=== PATIENT | male | born 1985 | race Caucasian/White ===

== ENCOUNTER 2016-12-06 07:06 | Observation (INO) | payer OTHER ==
[~2016-12-06] VITALS: Ht 175.3 cm; Wt 74.4 kg
[~2016-12-06 07:06] MED LIST: CLIN1CAP5 PO; HYDR-3533 PO
[2016-12-06 07:12] VITALS: BP 105/74; PULSE 99; RESP 16; TEMP 98.6; O2SAT 100
[2016-12-06] MEDS ORDERED: SODIUM CHLOR 0.9% 1000 ML INJ 1,000 ML IV SCH (07:26)
--- NOTE | 2016-12-06 07:28 | PD ---
HPI . Abdominal pain Chief Complaint: Abdominal Pain Time Seen by Provider: 07:26 Travel History International Travel<30 days: No Contact w/Intl Traveler<30days: No Traveled to known affect area: No History of Present Illness HPI Patient presents with the acute onset of abdominal pain. This started at 10:30 PM. It started in the upper abdomen as a mild ache and has moved to the right lower quadrant. He describes it as a pressure sensation. He rates it as a 7/ 10. Pain is exacerbated by certain positions and has been relieved by ice and heat. He reports some associated nausea but no vomiting or diarrhea. He does not believe that he has been running a fever. He denies any urinary tract symptoms. PFSH Past Medical History Diminished Hearing: No Immunizations Current: Yes Social History Alcohol Use: Yes ([facility]) Tobacco Use: No Substance Use: No Allergies-Medications (Allergen,Severity, Reaction): Coded Allergies: No Known Allergies (Unverified , 12/06/16) Reported Meds & Prescriptions Reported Meds & Active Scripts Active Reported Hydrocodone-Acetaminophen 5-325 mg Tab 1 Tab PO Q6H PRN Review of Systems Except as stated in HPI: all other systems reviewed are Neg General / Constitutional: No: Fever, Chills Gastrointestinal: Positive: Nausea, Abdominal Pain, No: Vomiting, Diarrhea Genitourinary: No: Urgency, Frequency, Dysuria, Hematuria Physical Exam Narrative GENERAL: Pale. No acute distress. SKIN: Warm and dry. HEAD: Atraumatic. Normocephalic. EYES: Pupils equal and round. Extraocular movements intact. ENT: No nasal bleeding or discharge. Mucous membranes pink and moist. NECK: Trachea midline. Neck supple. CARDIOVASCULAR: Regular rate and rhythm. Heart sounds normal. RESPIRATORY: No accessory muscle use. Lungs are clear with full air movement throughout. GASTROINTESTINAL: Abdomen soft. Positive right lower quadrant tenderness. No right upper quadrant tenderness. Nondistended. Bowel sounds are present. MUSCULOSKELETAL: No obvious deformities. No edema. NEUROLOGICAL: Awake and alert. No obvious cranial nerve deficits. Motor grossly within normal limits. Normal speech. PSYCHIATRIC: Appropriate mood and affect; insight and judgment normal. Data Data Last Documented VS Vital Signs Date Time Temp Pulse Resp B/P Pulse Ox O2 Delivery O2 Flow Rate FiO2 12/06/16 07:12 98.6 99 16 105/74 100 Orders Basic Metabolic Panel (Bmp) (12/06/16 07:26) Complete Blood Count With Diff (12/06/16 07:26) Urinalysis - C+S If Indicated (12/06/16 07:26) Ct Abd/Pel W Iv Contrast(Rout) (12/06/16 07:26) Iv Access Insert/Monitor (12/06/16 07:26) Morphine Inj (Morphine Inj) (12/06/16 07:30) Ondansetron Inj (Zofran Inj) (12/06/16 07:30) Sodium Chlor 0.9% 1000 Ml Inj (Ns 1000 M (12/06/16 07:26) Sodium Chloride 0.9% Flush (Ns Flush) (12/06/16 07:30) Iohexol 350 Inj (Omnipaque 350 Inj) (12/06/16 08:13) Labs Laboratory Tests Test 12/06/16 07:41 White Blood Count 15.9 TH/MM3 Red Blood Count 5.02 MIL/MM3 Hemoglobin 14.9 GM/DL Hematocrit 43.7 % Mean Corpuscular Volume 87.0 FL Mean Corpuscular Hemoglobin 29.5 PG Mean Corpuscular Hemoglobin 34.0 % Concent Red Cell Distribution Width 12.6 % Platelet Count 225 TH/MM3 Mean Platelet Volume 8.2 FL Neutrophils (%) (Auto) 86.4 % Lymphocytes (%) (Auto) 6.9 % Monocytes (%) (Auto) 4.2 % Eosinophils (%) (Auto) 0.5 % Basophils (%) (Auto) 2.0 % Neutrophils # (Auto) 13.7 TH/MM3 Lymphocytes # (Auto) 1.1 TH/MM3 Monocytes # (Auto) 0.7 TH/MM3 Eosinophils # (Auto) 0.1 TH/MM3 Basophils # (Auto) 0.3 TH/MM3 CBC Comment DIFF FINAL Differential Comment Sodium Level 140 MEQ/L Potassium Level 4.2 MEQ/L Chloride Level 103 MEQ/L Carbon Dioxide Level 25.3 MEQ/L Anion Gap 12 MEQ/L Blood Urea Nitrogen 12 MG/DL Creatinine 1.40 MG/DL Estimat Glomerular Filtration 59 ML/MIN Rate Random Glucose 123 MG/DL Calcium Level 9.2 MG/DL MDM Medical Decision Making Medical Screen Exam Complete: Yes Emergency Medical Condition: Yes Differential Diagnosis Differential diagnosis of abdominal pain includes but is not limited to gastritis, pancreatitis, hepatitis, gastroenteritis, gallbladder disease, constipation, urinary retention, UTI, peptic ulcer disease, diverticulitis or appendicitis Narrative Course Patient presents complaining with the acute onset of abdominal pain. The pain is located in the right lower quadrant. CT to rule out appendicitis is pending. CBC & BMP Diagram 12/06/16 07:41 Last Impressions Abdomen/Pelvis CT 12/06/16 0726 Signed Impressions: Service Date/Time: Tuesday, December 06, 2016 07:55 - CONCLUSION: 1. Edematous appendix with multiple appendicoliths concerning for an early appendicitis. No significant inflammatory changes, perforation or abscess. 2. The remainder of the abdomen is otherwise unremarkable. Alex Cobos MD The patient reports that he is currently comfortable. He reports minimal pain following morphine. He is agreeable to transfer to [facility] for surgery. Physician Communication Physician Communication Discussed with Dr. Sears. The patient will be transferred to [facility] to Dr. Sears service for impending appendectomy. Diagnosis Primary Impression: Appendicitis Qualified Code: K35.3 - Acute appendicitis with localized peritonitis Admitting Information Admitting Physician Requests: Observation Condition: Stable Mecca Santana MD December 06, 2016 07:28
[2016-12-06] MEDS ORDERED: MORPHINE SULFATE 4 MG/ML INJ IV PUSH ONE (07:30)
[2016-12-06] MEDS ORDERED: SODIUM CHLORIDE 0.9% FLUSH 10 ML FLUSH IV FLUSH PRN ×2 (07:30→12:30)
[2016-12-06] MEDS ORDERED: ONDANSETRON HCL 4 MG/2 ML VIAL IVP ONE (07:30)
[2016-12-06] MEDS ORDERED: HYDR-3516 PO (07:31)
[2016-12-06 07:46] LABS: AUTOMATED NEUTROPHIL # 13.7 TH/MM3 (1.8-7.7); BASOPHIL # 0.3 TH/MM3 (0-0.2); EOSINOPHIL # 0.1 TH/MM3 (0-0.4); EOSINOPHIL % 0.5 % (0.0-4.0); HEMATOCRIT 43.7 % (39.0-51.0); HEMO FLAGS DIFF FINAL; LYMPH % 6.9 % (9.0-44.0); LYMPHOCYTE # 1.1 TH/MM3 (1.0-4.8); MEAN CORPUSCULAR HEMOGLOBIN 29.5 PG (27.0-34.0); MONO % 4.2 % (0.0-8.0); NEUT % 86.4 % (16.0-70.0); PLATELET COUNT 225 TH/MM3 (150-450); RED BLOOD COUNT 5.02 MIL/MM3 (4.50-5.90); RED CELL DISTRIBUTION WIDTH 12.6 % (11.6-17.2); WHITE BLOOD COUNT 15.9 TH/MM3 (4.0-11.0)
[2016-12-06 07:59] LABS: BICARBONATE 25.3 MEQ/L (21.0-32.0)
[2016-12-06 08:01] LABS: POTASSIUM 4.2 MEQ/L (3.5-5.1)
[2016-12-06] MEDS ORDERED: IOHEXOL 350 MG/ML 10 ML VIAL (for RAD DIAG) IV ONE (08:13)
--- NOTE | 2016-12-06 08:20 | RADHPO ---
EXAM DATE/TIME: 12/06/2016 07:55 [facility] COMPARISON: No previous studies available for comparison. INDICATIONS : RIght lower quadrant pain. IV CONTRAST: 100 cc Omnipaque 350 (iohexol) IV ORAL CONTRAST: No oral contrast ingested. RADIATION DOSE: 7.45 CTDIvol (mGy) MEDICAL HISTORY : None SURGICAL HISTORY : Inguinal hernia repair. ENCOUNTER: Initial ACUITY: 1 day PAIN SCALE: 5/10 LOCATION: Right lower quadrant TECHNIQUE: Volumetric scanning of the abdomen and pelvis was performed. Using automated exposure control and ad justment of the mA and/or kV according to patient size, radiation dose was kept as low as reasonably achievable to obtain optimal diagnostic quality images. FINDINGS: LOWER LUNGS: The visualized lower lungs are clear. LIVER: Homogeneous density without lesion. There is no dilation of the biliary tree. No calcified gallston es. SPLEEN: Normal size without lesion. PANCREAS: Within normal limits. KIDNEYS: Normal in size and shape. There is no mass, stone or hydronephrosis. ADRENAL GLANDS: Within normal limits. VASCULAR: There is no aortic aneurysm. BOWEL/MESENTERY: The stomach, small bowel, and colon demonstrate no acute abnormality. There is no free intraperitone al air or fluid. The appendix is edematous and thickened measuring up to 17 mm. There are 3 appendico liths within the proximal, mid and distal appendix. No significant inflammatory changes. No perforati on or fluid collection. ABDOMINAL WALL: Within normal limits. RETROPERITONEUM: There is no lymphadenopathy. BLADDER: No wall thickening or mass. REPRODUCTIVE: Within normal limits. INGUINAL: There is no lymphadenopathy or hernia. MUSCULOSKELETAL: Within normal limits for patient age. CONCLUSION: 1. Edematous appendix with multiple appendicoliths concerning for an early appendicitis. No significa nt inflammatory changes, perforation or abscess. 2. The remainder of the abdomen is otherwise unremarkable. Alex Cobos MD on December 06, 2016 at 8:13 Board Certified Radiologist. This report was verified electronically.
[2016-12-06] MEDS ORDERED: PIPERACIL-TAZO 3.375 GM PREMIX 50 ML IV ONE (09:45)
[2016-12-06] MEDS ORDERED: BUPIVACAINE/EPINEPHRINE 0.5% PF 30 ML VIAL ONE (10:17)
[2016-12-06 10:18] LABS: BLOOD, URINE SMALL (NEG); GLUCOSE,URINE NEG (NEG); NITRITE,URINE NEG (NEG)
[2016-12-06 10:20] LABS: KETONE, URINE 80 OR GREATER mg/dL (NEG); METHOD OF COLLECTION CLEAN CATCH; URINE COLOR YELLOW (YELLW/STRAW)
[2016-12-06 10:23] LABS: COMMENT (UR) CULT NOT INDICATED; CULTURE IF INDICATED CULT NOT INDICATED; RBC, URINE 0-3 /hpf (0-3)
[2016-12-06] MEDS ORDERED: MIDAZOLAM HCL 2 MG/2 ML VIAL ONE (10:23)
[2016-12-06 10:35] VITALS: BP 105/61; TEMP 99.4
[2016-12-06 10:38] VITALS: BP 108/61; PULSE 87; RESP 18; TEMP 99.4; O2SAT 98
[2016-12-06] MEDS ORDERED: LACTATED RINGER'S 1000 ML INJ 1,000 ML ONE (11:29)
--- NOTE | 2016-12-06 11:49 | MH ---
cc: JAVI ONEILL VARTAN MD DATE OF ADMISSION: 12/06/2016 REASON FOR ADMISSION Abdominal pain right lower quadrant. HISTORY This is a pleasant 31-year-old gentleman who is had pain in the right lower quadrant, starting in the periumbilical area starting at 10 o'clock last night, he progressed to a severe pain right lower quadrant. He came to the emergency room and workup ensued. Surgery was consulted for evaluation and surgical opinion on his source of his abdominal pain. PAST medical and surgical HISTORY Negative for any chronic medical problems. He had a inguinal hernia repair of the right side just 3 months ago with open repair. He has no cardiac or pulmonary issues. No GI issues. No allergies, routine medications. Fairly healthy gentleman. PHYSICAL EXAMINATION: IN GENERAL: On physical exam he is sitting in bed. He alert, oriented, cooperative, points to his right lower quadrant where he hurts. He looks a little uncomfortable. NECK: Supple. CHEST: Clear. HEART: Regular rate. ABDOMEN: Thin soft with exquisite tenderness right lower quadrant burning McBurney point. He has a healed scar in the right lower quadrant where he had a right inguinal hernia repair 3 months ago. NEUROLOGIC: He is alert, oriented without focal deficits concerned about his medical condition. LABORATORY DATA White count 15, H&H 14, 43. Chemistry essentially normal at the creatinine 1.4. Urinalysis fairly clear. IMAGING STUDIES CT scan shows findings consistent with appendicitis. ASSESSMENT 31-year-old gentleman who has focal findings consistent with acute appendicitis, acute abdomen confirmed with radiologic imaging. PLAN Laparoscopic appendectomy was explained to the patient in detail and he appeared to understand. OR is getting ready. We will proceed as soon as possible. MD CATHY Gan/kingsley /11:13 AM 11:46 AM DONATO
[2016-12-06] MEDS ORDERED: PROPOFOL 200 MG/20 ML AMP IV ONE (12:00)
[2016-12-06] MEDS ORDERED: KETOROLAC TROMETHAMINE 60 MG/2 ML (IM) VIAL IM ONE (12:00)
[2016-12-06 12:11] VITALS: PULSE 109
--- NOTE | 2016-12-06 12:15 | HHI.PR ---
cc: Mark Sears MD Immediate Post Op Note Procedure Date: December 06, 2016 Pre Op Diagnosis: (1) Appendicitis (2) RLQ abdominal pain (3) Abnormal CT of the abdomen (4) Elevated WBC count Post Op Diagnosis: (1) Appendicitis (2) RLQ abdominal pain (3) Elevated WBC count Surgeon: Mark Sears Hat Measurer(s): see OR records Procedure: lap appy Findings: inflamed appendix Complications: o Specimen(s) removed: appendix Anesthesia: General Drains: None IVF Patient to: PACU Patient Condition: Good Implant/Devices: SEE IMPLANT LOG (if applicable) Date/Time of Procedure: SEE SURGICAL CARE RECORD Mark Sears MD December 06, 2016 12:15
[2016-12-06] MEDS ORDERED: NORC5TAB PO (12:23)
[2016-12-06] MEDS ORDERED: oxyCODONE/ACETAMINOPHEN 5 MG/325 MG TAB PO PRN (12:30)
[2016-12-06] MEDS ORDERED: oxyCODONE/ACETAMINOPHEN 10 MG/325 MG TAB PO PRN (12:30)
[2016-12-06] MEDS ORDERED: DO NOT ADM ANY ANTICOAGULANT DRUGS PRN (12:45)
[2016-12-06 13:45] VITALS: BP 109/70; PULSE 100; RESP 16; TEMP 98; O2SAT 100
[2016-12-06] MEDS ORDERED: SODIUM CHLORIDE 0.9% FLUSH 10 ML FLUSH IV FLUSH SCH (21:00)
--- NOTE | 2016-12-07 19:37 | MP ---
cc: JAVI SEARS M.D. DATE OF SURGERY: 12/06/2016. PREOPERATIVE DIAGNOSIS: Acute appendicitis. POSTOPERATIVE DIAGNOSIS: Acute appendicitis. OPERATIVE PROCEDURE PERFORMED: Laparoscopic appendectomy. SURGEON: Javi Sears MD. ANESTHESIA: General. INDICATIONS FOR THE PROCEDURE: This is a pleasant 31-year-old gentleman who had clinical findings and radiologic confirmation of appendicitis. Plans were made for the above. DESCRIPTION OF THE PROCEDURE IN DETAIL: The patient was taken to the operating room and placed in the supine position. After endotracheal anesthesia, his abdomen was prepped with Betadine. Time-out was done. He was given preoperative antibiotics. We made an incision just above the umbilicus. The Veress needle was inserted. The saline load test was performed 15 mmHg. A 10 mm trocar was introduced. The camera was introduced. Two other working ports placed in the midline below the first port. The appendix could be seen and it was obviously inflamed and thickened. The mesentery of appendix was taken down with the harmonic scalpel and dissected free. We placed two Endo ties and a PDS around the base of the appendix and these were cinched up and then and the appendix was amputated and placed in an EndoCatch and pulled out through the umbilical incision and passed off the field. We then irrigated copiously. There was residual cloudy fluid down his pelvis and this was evacuated. The liver was smooth. The peritoneal surfaces were smooth. He had a little bit of adhesions to his gallbladder status post a plug placement in the right inguinal region. The plug was visualized. No other gross abnormalities were seen. The omentum was draped over the appendiceal stump. After copiously irrigating the area, the irrigating solution and the CO2 were removed and the trocars were removed. The 10 mm port site was closed with a #0 Vicryl at the fascial layer and skin was closed with a 4-0 Vicryl. Steri-Strips were applied. Sterile bandage was applied. The patient tolerated the procedure well and had no immediate postoperative complications. MD CATHY Gan/MIKHAIL /12:05 PM /7:32 PM
== END 2016-12-09 09:45 | disposition home or self-care (01) ==
LOC: PHED 07:06 → PHEDA 08:30 → HPAC 11:01
PROVIDERS: ADMIT Surgery; ATTEND Surgery
DX: K35.3 Acute appendicitis with localized peritonitis (principal)
CPT/HCPCS: 00840; 44970; 74177; 80048; 81001; 85025; 88304; 96361; 96374; 96375; 99285; G0378; J1885; J2250; J2270; J2405; J2543; J3010; J7030; J7120; Q9967